=== PATIENT | female | born 1945 | race Hispanic/Latino ===

== ENCOUNTER 2018-07-01 09:25 | Observation (INO) | payer MEDICARE ==
[~2018-07-01] VITALS: Ht 154.9 cm; Wt 97.5 kg
[2018-07-01] MEDS ORDERED: VITAMIN E400 UNI1 (09:35)
[2018-07-01] MEDS ORDERED: METFORMIN HCL500 MG PO (09:35)
[2018-07-01] MEDS ORDERED: GLIPIZIDE5 MG PO (09:35)
[2018-07-01] MEDS ORDERED: ASPIRIN81 MG PO (09:35)
[2018-07-01] MEDS ORDERED: LOSARTAN POTASS25 MG (09:35)
[2018-07-01] MEDS ORDERED: VITAMIN D3400 UNI1 (09:35)
[2018-07-01] MEDS ORDERED: CARVEDILOL3.125 MG PO (09:35)
[2018-07-01] MEDS ORDERED: VITAMIN B-121000 MCG PO (09:35)
[2018-07-01] MEDS ORDERED: NITROGLYCERIN 2% OINT 1 GM PKT TOP ONE ×2 (09:45→10:30)
[2018-07-01 10:09] LABS: BASOPHILS % 0.7 % (0.0-1.0); EOSINOPHILS # (AUTO) 0.1 (0.0-0.4); EOSINOPHILS % 2.7 % (0.0-6.0); HEMATOCRIT 39.4 % (34.2-44.1); HEMOGLOBIN 12.8 g/dL (12.0-16.0); LYMPHOCYTES # (AUTO) 1.2 (1.0-3.2); LYMPHOCYTES % 28.7 % (18.0-39.1); MEAN CORPUSCULAR HEMOGLOBIN 30.8 pg (28-32); MEAN CORPUSCULAR HGB CONC 32.5 g/dL (31-35); MEAN CORPUSCULAR VOLUME 94.7 fL (81-99); MONOCYTES # (AUTO) 0.5 (0.2-0.8); MONOCYTES % 11.3 % (4.4-11.3); NEUTROPHILS # (AUTO) 2.3 (2.1-6.9); NEUTROPHILS % 56.4 % (38.7-80.0); PLATELET COUNT 156 x10e3/uL (140-360); RED BLOOD COUNT 4.16 x10e6/uL (3.6-5.1); RED CELL DISTRIBUTION WIDTH 13.2 % (11.7-14.4)
[2018-07-01 10:22] LABS: INR 1.03
[2018-07-01 10:23] LABS: PARTIAL THROMBOPLASTIN TIME 26.5 seconds (23.8-35.5)
--- NOTE | 2018-07-01 10:23 | NUR ---
PT STATES SHE IS NOT EXPERIENCING ANY SENSATION IN HER CHEST ANYMORE POST NITRO BID ADMIN
[2018-07-01 10:25] LABS: CLARITY,URINE SL CLOUDY (CLEAR); COLOR,URINE YELLOW (YELLOW)
[2018-07-01 10:26] LABS: ALANINE AMINOTRANSFERASE 44 IU/L (0-55); ALBUMIN 3.6 g/dL (3.5-5.0); ALBUMIN/GLOBULIN RATIO 1.1 (0.8-2.0); ALKALINE PHOSPHATASE 127 IU/L (40-150); ANION GAP 13.3 mmol/L (8-16); BILIRUBIN,URINE NEGATIVE (NEGATIVE); BLOOD UREA NITROGEN 12 mg/dL (7-26); BUN/CREATININE RATIO 16 (6-25); CALCIUM 9.8 mg/dL (8.4-10.2); CARBON DIOXIDE 27 mmol/L (22-29); CHLORIDE 107 mmol/L (98-107); CREATINE KINASE 140 IU/L (29-168); CREATININE, SERUM 0.77 mg/dL (0.57-1.11); EST GLOMERULAR FILTRATION RATE > 60 ML/MIN (60-); GLUCOSE 106 mg/dL (74-118); KETONES,URINE NEGATIVE (NEGATIVE); LEUKOCYTE ESTERASE ,URINE 2+ (NEGATIVE); MAGNESIUM 1.9 MG/DL (1.3-2.1); NITRITE,URINE NEGATIVE (NEGATIVE); POTASSIUM 4.3 mmol/L (3.5-5.1); PROTEIN,URINE DIPSTICK TRACE (NEGATIVE); SODIUM 143 mmol/L (136-145); URINE UROBILINOGEN 0.2 mg/dL (0.2 - 1)
[2018-07-01] MEDS ORDERED: ASPIRIN 81 MG CHEW TAB PO ONE ×2 (10:30→15:00)
[2018-07-01 10:32] LABS: BACTERIA,URINE MANY /HPF; RBC,URINE 0-5 /HPF (0-5); WBC,URINE (MAN) >50 /HPF (0-5)
[2018-07-01 10:33] LABS: EPITHELIAL CELLS,URINE RARE /LPF; MUCUS,URINE FEW (RARE)
--- NOTE | 2018-07-01 10:37 | Diagnostic Imaging Report ---
EXAMINATION: CHEST SINGLE (PORTABLE) INDICATION: ^CP SOB ^[id number] ^[id number] COMPARISON: None FINDINGS: AP view TUBES and LINES: None. LUNGS: Limited by body habitus and low lung volumes. There is no evidence of pneumonia or pulmonary edema. PLEURA: No pleural effusion or pneumothorax. HEART AND MEDIASTINUM: The cardiomediastinal silhouette is unremarkable. BONES AND SOFT TISSUES: No acute osseous lesion. Soft tissues are unremarkable. UPPER ABDOMEN: No free air under the diaphragm. IMPRESSION: No acute thoracic abnormality. Signed by: Dr. Evens Robertson MD on 07/01/2018 10:33 AM
--- OUTSIDE RECORDS SUMMARY | 2018-07-01 11:44 | XMS REPORT ---
[facility] Address Unknown Phone Unavailable Care Team Providers Care Reading Aide Name Role Phone Eris RUCKER Unavailable Unavailable Problems This patient has no known problems. Allergies, Adverse Reactions, Alerts This patient has no known allergies or adverse reactions. Medications This patient has no known medications. Results Test Description Test Time Test Comments Text Results Atomic Results Result Comments CHEST SINGLE (PORTABLE) 2018-07-01 10:32:00 [place] [address] Patient Name: ESTELLE QUINTERO MR #: [id number] : 1945 Age/Sex: 72/F Req #: [id number] Adm Physician: Ordered by: YURI RUCKER MD Report #: [id number] Location: ER Room/Bed: Procedure: [id number] DX/CHEST SINGLE (PORTABLE) Exam Date: 07/01/18 Exam Time: 0950 REPORT STATUS: Signed EXAMINATION: CHEST SINGLE (PORTABLE) INDIC ATION: CP SOB [id number] COMPARISON: None FINDINGS: AP view TUBES and LINES: None. LUNGS: Limited by body habitus and low lung volumes. There is no evidence of pneumonia or pulmonary edema. PLEURA: No pleural effusion or pneumothorax. HEART AND MEDIASTINUM: The cardiomediastinal silhouette is unremarkable. BONES AND SOFT TISSUES: No acute osseous lesion. Soft tissues are unremarkable. UPPER ABDOMEN: No free air under the diaphragm. IMPRESSION: No acute thoracic abnormality. Signed by: Dr. Evens Osei MD on 07/01/2018 10:33 AM Dictated By: EVENS OSEI MD [id number] Transcribed By: KAN on 07/01/18 1033 COPY TO: YURI RUCKER MD SCR MAMM BILATERAL CAD DIGITAL 2018-02-16 15:12:18 - SCR MAMM BILATERAL CAD DIGITALBILATERAL DIGITAL SCREENING MAMMOGRAM WITH CAD: 02/14/2018CLINICAL: Asymptomatic. Current mammographic images were evaluated by either a [employer] M- Vu or a [employer] Image[employer]uckletreeer CAD (computer aided detection system). Comparison is made to exams dated 02/02/2014 mammogram - [facility], 03/08/2016 mammogram - [facility] 01/27/2012 mammogram, and 03/22/2011 mammogram - [facility]. The tissue of both breasts is predominantly fatty. There are benign vascular calcifications and calcifications in both breasts. There also is a benign mass in the left breast, stable since 2010. No suspicious mass, architectural distortion, malignant type calcification, or lymph node abnormality detected. Breast architecture is stable compared to prior exams.IMPRESSION: BENIGNThere is no mammographic evidence of malignancy. Resume annual screening mammography in one year. Suyapa Mendez D.O. al/:02/16/2018 15:12:18 Boiler Repairman: Marbella HARRIS, [facility]-FWletter sent: BIRADS 1-2 Normal Mammogram BI-RADS: 2 Benign
[2018-07-01] MEDS ORDERED: DEXTROSE 50% SYRINGE 50 ML IV PRN (11:45)
[2018-07-01] MEDS ORDERED: NITROGLYCERIN 0.4 MG SUBL SL PRN (11:45)
[2018-07-01] MEDS ORDERED: ONDANSETRON HCL INJ 2MG/ML 2ML 2 MG/ML VIAL IV PRN (11:45)
[2018-07-01] MEDS: CEFTRIAXONE SOD 1 GM/NS 50 ML 50 ML IV SCH (11:53)
--- NOTE | 2018-07-01 11:53 | NUR ---
PT RESTING COMFORTABLY IN BED MAKES NO COMPLAINTS AT THIS TIME GIVEN WARM BLANKETS
--- NOTE | 2018-07-01 12:10 | NUR ---
DR YUAN IN ROOM WITH PT
--- NOTE | 2018-07-01 12:30 | NUR ---
ARRIVED VIA STRETCHER FROM ER, AA&OX3, RA, DENIES CP AT THIS TIME, ORIENTED TO ROOM AND CALL LIGHT SYSTEM, CALL LIGHT WITHIN REACH, FAMILY AT SIDE
[2018-07-01 13:00] VITALS: BP 135/64
[2018-07-01 14:00] VITALS: BP 135/64
[2018-07-01] MEDS ORDERED: CLOPIDOGREL BISULFATE 75 MG TAB PO ONE (15:00)
[2018-07-01] MEDS: ENOXAPARIN SODIUM INJ 100 MG/ML SYR SC ONE (15:06)
[2018-07-01 15:24] LABS: CREATINE KINASE MB 2.1 ng/mL (0-5.0)
--- NOTE | 2018-07-01 15:37 | Consultation ---
DATE OF CONSULTATION: 07/01/2018 Cardiac Consultation REASON FOR CONSULTATION: Chest pain. HISTORY OF PRESENT ILLNESS: A 72-year-old lady, diabetic, hypertensive, and hyperlipidemic for more than 20 years. She had fall and frozen left shoulder since 2014. She came to this institution because she had two episodes yesterday and today of pinching her chest, not pressure and with that, she felt not well and radiating to her left arm. She got one episode yesterday and one episode today. She claims she walks every day any prior angina. However, she does have shortness of breath on exertion. She denied having any orthopnea or paroxysmal nocturnal dyspnea. There is no syncope or presyncope. REVIEW OF SYSTEMS: Done to all systems, will be summarized for clarity: GENERAL: No fever. No chills. HEENT: Unremarkable. PULMONARY: Class 3 shortness of breath on exertion. No recent travel. No pleuritic chest pain. CARDIAC: As per acute illness, mainly shortness of breath on exertion. Yesterday and today, she had episodes of chest pain. Of note, this chest pain helped by nitroglycerin given. GI: No hematemesis. No melena. No GERD. No nausea. No vomiting. : No hematuria. No dysuria. MUSCULOSKELETAL: Low back pain. Tingling and numbness in the feet. NEUROLOGIC: No seizure activity. No localized weakness. ENDOCRINE: The patient is diabetic for many years. 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 She is . She is nonsmoker. No alcohol drinker. HOME MEDICATIONS: Include aspirin 81 mg a day, Coreg 3.125 mg twice a day, losartan 25 mg a day, glipizide 5 mg a day, metformin 500 mg twice a day, and vitamin D3 and B12. ALLERGIES: LISINOPRIL. PAST MEDICAL HISTORY: 1. Diabetes mellitus since early . 2. Hypertension. 3. Hyperlipidemia. 4. Cholecystectomy. 5. Hysterectomy. 6. Back pain. 7. Fall and frozen left shoulder. FAMILY HISTORY: Father at age 55 with drowning accident. Mother doing well at age 92, she does have Alzheimer's. Six siblings, two brothers and four sisters. One of the brother had myocardial infarction in his 50s. Five healthy children. PHYSICAL EXAMINATION: VITAL SIGNS: Height of 5 feet 1 inch, weight of 215 pounds. Blood pressure 120/50, heart rate of 70, and respiratory rate of 18. HEENT: Pupils are equal and reactive. NECK: No elevation of jugular venous pulsation. No bruit. CHEST: Clear to auscultation and percussion. HEART: PMI in fifth left intercoastal space. Normal first and second heart sounds. ABDOMEN: Soft with good bowel sounds. No organomegaly. No abdominal bruits. EXTREMITIES: No cyanosis. No clubbing. No edema. No signs of deep venous thrombosis. NEUROLOGIC: Nonfocal. LABORATORY DATA: First set of cardiac enzymes is normal. BUN of 12, creatinine of 0.8. Sodium of 143, potassium 4.3. White blood cell count of 4.7, hemoglobin of 12.8, hematocrit 39%, and platelet count of 166,000. BNP Of 35. EKG showed no acute changes. Chest x-ray by report is normal. IMPRESSION AND PLAN: 1. Chest pain with typical as well as atypical characteristics. Typical characteristic is recent onset, helped by nitroglycerin in the patient with multiple cardiac risks factors. Atypical, was pinching pain and no prior warning angina although shortness of breath on exertion is angina equivalent. 2. Diabetes mellitus with end-organ damage. 3. Hypertension. 4. Hyperlipidemia. 5. Peripheral neuropathy. 6. Chronic left shoulder pain. Cardiac june, the patient needs to be treated as unstable coronary syndrome. She will be loaded with Plavix. She will be given one shot of Lovenox. We will get serial cardiac enzymes. We will get an echocardiogram. We had lengthy discussion about our options of working her cardiac status, pending on initial investigations, pending on the patient's symptomatology, we can proceed with the next step which should be cardiac stress test unless the patient continues to have pain or her enzymes are normal; however, we will reevaluate the patient's condition. Pending on her course. Further steps to be done. Questions are answered. Case discussed with the patient and her family. MD FABY Mancilla/TEMIL /[id number]
[2018-07-01] MEDS ORDERED: NITROGLYCERIN 2% OINT 1 GM PKT TOP SCH (16:00)
[2018-07-01] MEDS: INSULIN LISPRO 100 UNIT/1 ML 3ML VIAL SQ SCH ×2 (16:30→21:00)
[2018-07-01] MEDS: CARVEDILOL 3.125 MG TAB PO SCH (17:00)
[2018-07-01 17:51] VITALS: BP 134/62
[2018-07-01] MEDS: METFORMIN HCL 500 MG TAB PO SCH (18:00)
--- NOTE | 2018-07-01 18:30 | NUR ---
DENIES ANY CP OR SOB AT THIS TIME, NO CHANGE IN CONDITION, CALL LIGHT WITHIN REACH, FAMILY AT SIDE
--- NOTE | 2018-07-01 19:03 | NUR ---
WALKING ROUNDS PERFORMED, RECEIVED PT LAYING SEMI FOWLERS IN BED, AAOX3, RR EVEN AND NON-LABORED, ON RA. NO S/SX OF DISTRESS NOTED. LEFT PT LAYING SEMI FOWLERS IN BED,BED IN LOW LOCKED POSITION, SIDE RAILS UPX2, CALL LIGHT AND PHONE WITHIN REACH.
[2018-07-01 20:00] VITALS: BP 134/65
[2018-07-01] MEDS ORDERED: FAMOTIDINE 20 MG/2 ML VIAL IV SCH (20:00)
[2018-07-01 21:18] VITALS: BP 134/62
[2018-07-02] VITALS (8 sets, daily range): BP systolic 124–170; BP diastolic 60–80
[2018-07-02 06:35] LABS: BASOPHILS % 0.3 % (0.0-1.0); EOSINOPHILS # (AUTO) 0.1 (0.0-0.4); HEMATOCRIT 37.3 % (34.2-44.1); HEMOGLOBIN 12.1 g/dL (12.0-16.0); LYMPHOCYTES # (AUTO) 1.1 (1.0-3.2); LYMPHOCYTES % 34.5 % (18.0-39.1); MEAN CORPUSCULAR HEMOGLOBIN 30.9 pg (28-32); MEAN CORPUSCULAR HGB CONC 32.4 g/dL (31-35); MEAN CORPUSCULAR VOLUME 95.2 fL (81-99); MONOCYTES # (AUTO) 0.4 (0.2-0.8); MONOCYTES % 11.5 % (4.4-11.3); NEUTROPHILS # (AUTO) 1.7 (2.1-6.9); NEUTROPHILS % 50.4 % (38.7-80.0); PLATELET COUNT 141 x10e3/uL (140-360); RED BLOOD COUNT 3.92 x10e6/uL (3.6-5.1); RED CELL DISTRIBUTION WIDTH 13.3 % (11.7-14.4)
[2018-07-02 06:59] LABS: ALANINE AMINOTRANSFERASE 39 IU/L (0-55); ALBUMIN 3.3 g/dL (3.5-5.0); ALBUMIN/GLOBULIN RATIO 1.1 (0.8-2.0); ALKALINE PHOSPHATASE 115 IU/L (40-150); ANION GAP 11.9 mmol/L (8-16); BLOOD UREA NITROGEN 12 mg/dL (7-26); BUN/CREATININE RATIO 17 (6-25); CALCIUM 9.4 mg/dL (8.4-10.2); CARBON DIOXIDE 26 mmol/L (22-29); CHLORIDE 108 mmol/L (98-107); CREATININE, SERUM 0.71 mg/dL (0.57-1.11); EST GLOMERULAR FILTRATION RATE > 60 ML/MIN (60-); GLUCOSE 88 mg/dL (74-118); POTASSIUM 3.9 mmol/L (3.5-5.1); SODIUM 142 mmol/L (136-145)
[2018-07-02 07:18] LABS: THYROID STIMULATING HORMONE 1.978 uIU/mL (0.350-4.940)
[2018-07-02] MEDS: INSULIN LISPRO 100 UNIT/1 ML 3ML VIAL SQ SCH ×4 (07:30→21:11)
[2018-07-02] MEDS: CARVEDILOL 3.125 MG TAB PO SCH (08:00)
[2018-07-02] MEDS: METFORMIN HCL 500 MG TAB PO SCH ×2 (08:00→17:38)
[2018-07-02] MEDS: LOSARTAN POTASSIUM 25 MG TAB PO SCH (09:00)
[2018-07-02] MEDS: CLOPIDOGREL BISULFATE 75 MG TAB PO SCH (09:00)
[2018-07-02] MEDS ORDERED: GLIPIZIDE 5 MG TAB PO SCH (09:00)
[2018-07-02] MEDS: ASPIRIN 81 MG ENTERIC COATED PO SCH (09:00)
--- NOTE | 2018-07-02 10:00 | NUR ---
AMBULATING IN HALLWAY, STEADY GAIT Addendum: 07/02/18 at 1148 by Justyna Pimentel RN PT DENIES ANY SOB WHILE AMBULATING
--- NOTE | 2018-07-02 11:32 | NUR ---
MD SMITH INTO SEE PT, DISCUSSED POC
--- NOTE | 2018-07-02 11:53 | NUR ---
MD YUAN INTO SEE PT, DISCUSSED POC
[2018-07-02] MEDS ORDERED: SODIUM CHLORIDE 0.9% 250ML 250 ML ONE (11:59)
[2018-07-02] MEDS: CEFTRIAXONE SOD 1 GM/NS 50 ML 50 ML IV SCH (12:12)
[2018-07-02] MEDS: GLIPIZIDE 5 MG TAB PO SCH (17:39)
--- NOTE | 2018-07-02 19:08 | NUR ---
WALKING ROUNDS PERFORMED, RECEIVED PT LAYING SEMI FOWLERS IN BED, AAOX3, RR EVEN AND NON-LABORED, ON RA. NO S/SX OF DISTRESS NOTED. LEFT PT LAYING SEMI FOWLERS IN BED, BED IN LOW LOCKED POSITION, SIDE RAILS UPX2, CALL LIGHT AND PHONE WITHIN REACH.
[2018-07-03 00:47] VITALS: BP 130/62
[2018-07-03 05:10] VITALS: BP 141/65
--- NOTE | 2018-07-03 07:16 | NUR ---
Received patient in report this morning. Patient is awake and sitting in chair at bedside. No S&S of distress at this time.
[2018-07-03] MEDS: INSULIN LISPRO 100 UNIT/1 ML 3ML VIAL SQ SCH ×2 (07:30→11:30)
[2018-07-03 07:32] VITALS: BP 157/70
[2018-07-03] MEDS: METFORMIN HCL 500 MG TAB PO SCH (08:00)
[2018-07-03] MEDS: GLIPIZIDE 5 MG TAB PO SCH (08:00)
--- NOTE | 2018-07-03 08:45 | NUR ---
Patient is A&Ox3, sitting in chair at bedside. Patient walks with no assistance. No complaints of pain, no chest pain. Lung sounds clear, bowel sounds active. Skin intact. No edema noted. L AC 20g IV asymptomatic, intact, and patent. No S&S of distress noted. Patient told to call staff when she has BM to collect sample. Family member at bedside. Call light in reach.
[2018-07-03] MEDS ORDERED: REGADENOSON 0.4 MG/5 ML SYR IV ONE (08:47)
[2018-07-03] MEDS: CARVEDILOL 3.125 MG TAB PO SCH ×2 (09:00→13:23)
[2018-07-03] MEDS: LOSARTAN POTASSIUM 25 MG TAB PO SCH ×2 (09:00→13:22)
[2018-07-03] MEDS: CLOPIDOGREL BISULFATE 75 MG TAB PO SCH ×2 (09:00→13:22)
[2018-07-03] MEDS: ASPIRIN 81 MG ENTERIC COATED PO SCH ×2 (09:00→13:22)
--- NOTE | 2018-07-03 10:04 | NUR ---
Patient went to stress test at this time
[2018-07-03 10:36] VITALS: BP 157/70
--- NOTE | 2018-07-03 12:35 | NUR ---
Patient returned from stress test at this time,
[2018-07-03 13:01] VITALS: BP 181/74
[2018-07-03] MEDS: CEFTRIAXONE SOD 1 GM/NS 50 ML 50 ML IV SCH (13:15)
[2018-07-03 14:11] VITALS: BP 157/70
--- NOTE | 2018-07-03 14:45 | NUR ---
IV removed at this time. Catheter tip intact. Pressure dressing applied.
[2018-07-03] MEDS ORDERED: ONDANSETRON HCL 4 MG ORAL DISINTEGRATING TAB PO PRN (15:15)
--- NOTE | 2018-07-03 15:25 | NUR ---
Patient discharged at this time. Assisted to front via wheelchair, accompanied by staff.
--- NOTE | 2018-07-04 01:14 | History and Physical ---
LEXISCAN NUCLEAR STRESS REPORT ACCESSION NUMBER: [id number] INDICATION FOR STUDY: Chest pain and inability to exercise. TECHNICAL DETAILS: After risks, benefits, and pros and cons of this Lexiscan nuclear stress test were explained to the patient, the patient agreed to proceed. This was a same day rest/stress study. The patient was brought down to the nuclear laboratory. She received an 11-millicurie dose of technetium-99 tetrofosmin intravenously and after 14 minutes, resting myocardial perfusion imaging was performed on the Optics 1 SPECT camera. Afterwards, the patient was brought down to the stress lab with 12-lead EKG monitoring and blood pressure monitoring were obtained. She received dose of Lexiscan 0.4 mg intervenously followed by 33-millicurie dose of technetium-99 tetrofosmin intervenously. Resting heart rate went from the baseline of 68 beats per minutes to a maximum of 110 beats per minute. Blood pressure went from her baseline of 154/88 to 168/68, which is a normal hemodynamic response. Resting EKG reveals normal sinus rhythm. T-wave flattening in the inferior and lateral leads and with Lexiscan infusion, there is no ischemic EKG changes or symptoms. After 25 minutes, the patient was then taken to the SPECT camera for stress myocardial perfusion imaging. FINDINGS: 1. Resting myocardial perfusion imaging reveals normal tracer uptake and no scintigraphic areas of ischemia. 2. Stress myocardial perfusion imaging reveals normal tracer uptake and no scintigraphic areas of ischemia. 3. Following gated measurements were obtained: LV EDV 23, LV ESV 60 ventricular ejection fraction is 63% with normal wall motion. CONCLUSIONS: 1. Normal myocardial perfusion imaging study revealing normal tracer uptake and no scintigraphic areas of ischemia. 2. Normal left ventricular function with EF calculated to be 63%. 3. Overall findings of the stress test is suggestive of low risk study. MD TAYA Sanchez/AMADOR /[id number] HEENA
--- NOTE | 2018-07-04 04:00 | Discharge Summary ---
PRIMARY CARE DOCTOR: Donn Ledesma MD. FINAL DIAGNOSIS: Atypical chest pain. SECONDARY DIAGNOSES: 1. Escherichia coli urinary tract infection, status post IV Rocephin. 2. Morbid obesity. 3. Diabetes. 4. Hypertension. AIRCRAFT DE ICER INSTALLER: Dr. Duke, Cardiology. PROCEDURES/STUDIES PERFORMED: 1. Echocardiogram was benign. 2. The stress test was benign. HISTORY: Per H and P. HOSPITAL COURSE: The patient was evaluated by Cardiology, who felt that a stress test was indicated and this was done and it was unremarkable. The patient also has some dysuria. Her urine culture grew out Escherichia coli resistant to Bactrim, ampicillin, and intermediate to cefazolin. The patient received IV Rocephin. The patient was seen and examined today. It took 31 minutes total to discharge this patient including updating her family members at the bedside. CONDITION ON DISCHARGE: Improved. DISCHARGE MEDICATIONS: Please see medication reconciliation form. FOLLOWUP: The patient will follow up with her primary care doctor in 1 week. MD TAHIR Cleaning/AMADOR /[id number] cc: [facility]
== END 2018-07-03 15:25 | disposition home or self-care (01) ==
LOC: ER 09:25 → ERHOLD 11:35 → MED/SURG 12:30
PROVIDERS: ADMIT Internal Medicine; ATTEND Internal Medicine
DX: R07.89 Other chest pain (principal); N30.00 Acute cystitis without hematuria; I10 Essential (primary) hypertension; E78.5 Hyperlipidemia, unspecified; Z82.49 Family history of ischemic heart disease and other diseases of the circulatory system; M79.602 Pain in left arm; E66.01 Morbid (severe) obesity due to excess calories; Z68.41 Body mass index [BMI] 40.0-44.9, adult; E11.42 Type 2 diabetes mellitus with diabetic polyneuropathy; B96.20 Unspecified Escherichia coli [E. coli] as the cause of diseases classified elsewhere; Z79.84 Long term (current) use of oral hypoglycemic drugs; Z88.8 Allergy status to other drugs, medicaments and biological substances
CPT/HCPCS: 36415 ×3; 71045; 78452; 80053 ×2; 80061; 81001; 82270; 82550; 82553; 82948 ×3; 83036; 83735; 83880; 84443; 84484; 85025 ×2; 85610; 85730; 87086; 87186; 93005; 93017; 93306; 99284; A9502; G0378 ×3; J0696 ×3; J1650; J2785; J7050

== ENCOUNTER 2021-12-09 20:01 | Emergency (ER) | payer MEDICARE ==
[~2021-12-09] VITALS: Ht 154.9 cm; Wt 97.5 kg
[~2021-12-09 20:01] MED LIST: ASPIRIN81 MG PO; CARVEDILOL3.125 MG PO; GLIPIZIDE5 MG PO; LOSARTAN POTASS25 MG; METFORMIN HCL500 MG PO; VITAMIN B-121000 MCG PO; VITAMIN D3400 UNI1; VITAMIN E400 UNI1
[2021-12-09 20:26] LABS: BASOPHILS % 0.3 % (0.0-1.0); EOSINOPHILS # (AUTO) 0.1 (0.0-0.4); EOSINOPHILS % 3.9 % (0.0-6.0); HEMATOCRIT 36.7 % (34.2-44.1); HEMOGLOBIN 11.8 g/dL (12.0-16.0); LYMPHOCYTES # (AUTO) 1.1 (1.0-3.2); LYMPHOCYTES % 32.3 % (18.0-39.1); MEAN CORPUSCULAR HEMOGLOBIN 30.7 pg (28-32); MEAN CORPUSCULAR HGB CONC 32.2 g/dL (31-35); MEAN CORPUSCULAR VOLUME 95.6 fL (81-99); MONOCYTES # (AUTO) 0.3 (0.2-0.8); MONOCYTES % 10.1 % (4.4-11.3); NEUTROPHILS # (AUTO) 1.8 (2.1-6.9); NEUTROPHILS % 53.4 % (38.7-80.0); PLATELET COUNT 123 x10e3/uL (140-360); RED BLOOD COUNT 3.84 x10e6/uL (3.6-5.1); RED CELL DISTRIBUTION WIDTH 13.2 % (11.7-14.4)
[2021-12-09 20:50] LABS: ALANINE AMINOTRANSFERASE 28 IU/L (0-55); ALBUMIN 3.8 g/dL (3.5-5.0); ALBUMIN/GLOBULIN RATIO 1.2 (0.8-2.0); ALKALINE PHOSPHATASE 98 IU/L (40-150); ANION GAP 15.2 mmol/L (8-16); BLOOD UREA NITROGEN 14 mg/dL (7-26); BUN/CREATININE RATIO 17 (6-25); CALCIUM 9.2 mg/dL (8.4-10.2); CARBON DIOXIDE 25 mmol/L (22-29); CHLORIDE 105 mmol/L (98-107); CREATINE KINASE 168 IU/L (29-168); CREATININE, SERUM 0.82 mg/dL (0.57-1.11); GLUCOSE 220 mg/dL (74-118); POTASSIUM 4.2 mmol/L (3.5-5.1); SODIUM 141 mmol/L (136-145)
[2021-12-09 22:21] VITALS: BP 168/76
== END 2021-12-09 22:09 | disposition home or self-care (01) ==
LOC: ER 20:36
DX: R07.9 Chest pain, unspecified (principal); I10 Essential (primary) hypertension; E11.65 Type 2 diabetes mellitus with hyperglycemia; E78.00 Pure hypercholesterolemia, unspecified; R94.31 Abnormal electrocardiogram [ECG] [EKG]
CPT/HCPCS: 36415; 71045; 80053; 82550; 82553; 84484; 85025; 93005; 99284

== ENCOUNTER 2023-10-16 20:18 | Emergency (ER) | payer MEDICARE ==
[~2023-10-16] VITALS: Ht 157.5 cm; Wt 86.6 kg
[2023-10-16 20:42] VITALS: PULSE 74; RESP 18; TEMP 98.6
[2023-10-16] MEDS ORDERED: TETANUS/DIPHTHERIA TOX ADULT 0.5 ML SYR IM ONE (20:45)
[2023-10-16] MEDS ORDERED: CEFTRIAXONE 1 GM VIAL IM ONE (21:30)
[2023-10-16] MEDS ORDERED: CEFDINIR300 MG PO (21:35)
[2023-10-16] MEDS ORDERED: LIDOCAINE HCL 1% LOCAL INJ 20 ML VIAL ONE (21:43)
[2023-10-16 21:58] VITALS: BP 149/71; PULSE 74; RESP 18; TEMP 98.6; O2SAT 97
== END 2023-10-16 21:58 | disposition home or self-care (01) ==
LOC: FSED 20:32
DX: R06.02 Shortness of breath (principal); J20.9 Acute bronchitis, unspecified; R05.9 Cough, unspecified; I10 Essential (primary) hypertension; E11.9 Type 2 diabetes mellitus without complications; Z11.52 Encounter for screening for COVID-19
CPT/HCPCS: 0223U; 87400; 96372; 99282; J0696; J2001

== ENCOUNTER 2024-01-04 17:25 | Emergency (ER) | payer MEDICARE ==
[~2024-01-04] VITALS: Ht 157.5 cm; Wt 86.6 kg
[~2024-01-04 17:25] MED LIST changes: +CEFDINIR300 MG PO
[2024-01-04] MEDS: ALBUTEROL/IPRATROPIUM 3 ML NEB NEB ONE (20:00)
[2024-01-04] MEDS: METHYLPREDNISOLONE SOD SUCC 125 MG/2ML VIAL IM ONE (20:27)
[2024-01-04 21:44] VITALS: PULSE 74; RESP 18; TEMP 98.6
[2024-01-04] MEDS ORDERED: MEDROL4 M2 PO (21:44)
[2024-01-04] MEDS ORDERED: VENTOLIN HFA18 GM INH (21:44)
[2024-01-04 21:50] VITALS: PULSE 81; RESP 18; O2SAT 96
== END 2024-01-04 21:50 | disposition home or self-care (01) ==
LOC: ER 17:55
DX: R05.9 Cough, unspecified (principal); J45.909 Unspecified asthma, uncomplicated; I10 Essential (primary) hypertension; E11.9 Type 2 diabetes mellitus without complications; E78.5 Hyperlipidemia, unspecified; Z85.42 Personal history of malignant neoplasm of other parts of uterus
CPT/HCPCS: 71046; 94799; 99283; J2919

== ENCOUNTER 2024-01-13 00:09 | Emergency (ER) | payer MEDICARE ==
[~2024-01-13] VITALS: Ht 157.5 cm; Wt 86.6 kg
[~2024-01-13 00:09] MED LIST changes: +MEDROL4 M2 PO; +VENTOLIN HFA18 GM INH
[2024-01-13 00:16] VITALS: PULSE 61; RESP 20; TEMP 98.4
[2024-01-13 00:50] LABS: BASOPHILS % 0.3 % (0.0-1.0); EOSINOPHILS # (AUTO) 0.1 (0.0-0.4); HEMATOCRIT 40.2 % (34.2-44.1); HEMOGLOBIN 12.9 g/dL (12.0-16.0); LYMPHOCYTES # (AUTO) 1.5 (1.0-3.2); LYMPHOCYTES % 24.4 % (18.0-39.1); MEAN CORPUSCULAR HEMOGLOBIN 31.5 pg (28-32); MEAN CORPUSCULAR HGB CONC 32.1 g/dL (31-35); MONOCYTES # (AUTO) 0.7 (0.2-0.8); NEUTROPHILS # (AUTO) 3.7 (2.1-6.9); NEUTROPHILS % 60.6 % (38.7-80.0); PLATELET COUNT 147 x10e3/uL (140-360); RED CELL DISTRIBUTION WIDTH 13.3 % (11.7-14.4); WHITE BLOOD COUNT 6.02 x10e3/uL (4.8-10.8)
[2024-01-13 01:01] LABS: ALANINE AMINOTRANSFERASE 35 IU/L (0-55); ALBUMIN/GLOBULIN RATIO 1.3 (0.8-2.0); ALKALINE PHOSPHATASE 97 IU/L (40-150); ANION GAP 13.1 mmol/L (8-16); BLOOD UREA NITROGEN 19 mg/dL (7-26); BUN/CREATININE RATIO 37 (6-25); CALCIUM 9.4 mg/dL (8.4-10.2); CARBON DIOXIDE 25 mmol/L (22-29); CHLORIDE 102 mmol/L (98-107); CREATININE, SERUM 0.51 mg/dL (0.57-1.11); EST GLOMERULAR FILTRATION RATE 96 ML/MIN (>=60); GLUCOSE 155 mg/dL (74-118); POTASSIUM 4.1 mmol/L (3.5-5.1); SODIUM 136 mmol/L (136-145); TOTAL PROTEIN 7.1 g/dL (6.5-8.1)
[2024-01-13 01:05] LABS: BILIRUBIN,TOTAL < 0.1 mg/dL (0.2-1.2)
[2024-01-13 01:12] LABS: CLARITY,URINE SL CLOUDY (CLEAR); COLOR,URINE YELLOW (YELLOW)
[2024-01-13 01:13] LABS: BILIRUBIN,URINE NEGATIVE (NEGATIVE); GLUCOSE, URINE 500 (NEGATIVE); KETONES,URINE NEGATIVE (NEGATIVE); LEUKOCYTE ESTERASE ,URINE SMALL (NEGATIVE); NITRITE,URINE POSITIVE (NEGATIVE); PH,URINE 6 (5 - 7); PROTEIN,URINE DIPSTICK NEGATIVE (NEGATIVE); URINE UROBILINOGEN 0.2 mg/dL (0.2 - 1)
[2024-01-13 01:18] LABS: BACTERIA,URINE MANY /HPF; EPITHELIAL CELLS,URINE FEW /LPF; RBC,URINE 0-5 /HPF (0-5)
[2024-01-13 01:19] LABS: WBC,URINE (MAN) 21-50 /HPF (0-5)
[2024-01-13] MEDS ORDERED: IOPAMIDOL 370 MG/ML 100 ML INFUS..BTL INJ ONE (01:27)
[2024-01-13] MEDS ORDERED: CEFDINIR300 MG PO (02:54)
[2024-01-13] MEDS ORDERED: METRONIDAZOLE500 MG PO (02:54)
[2024-01-13] MEDS ORDERED: ONDANSETRON ODT4 MG SL (02:54)
[2024-01-13 03:04] VITALS: BP 150/68; O2SAT 99
== END 2024-01-13 03:00 | disposition home or self-care (01) ==
LOC: ER 00:13
DX: R10.32 Left lower quadrant pain (principal); N39.0 Urinary tract infection, site not specified; K57.32 Diverticulitis of large intestine without perforation or abscess without bleeding; K76.0 Fatty (change of) liver, not elsewhere classified; I10 Essential (primary) hypertension; E11.65 Type 2 diabetes mellitus with hyperglycemia; E78.5 Hyperlipidemia, unspecified; E78.00 Pure hypercholesterolemia, unspecified; Z85.42 Personal history of malignant neoplasm of other parts of uterus
CPT/HCPCS: 36415; 74177; 80053; 81001; 83690; 85025; 99284; Q9967

== ENCOUNTER 2024-07-16 12:54 | Emergency (ER) | payer MEDICARE ==
[~2024-07-16] VITALS: Ht 157.5 cm; Wt 86.6 kg
[~2024-07-16 12:54] MED LIST changes: +METRONIDAZOLE500 MG PO; +ONDANSETRON ODT4 MG SL
[2024-07-16 12:59] VITALS: PULSE 70; RESP 16; TEMP 98.1; O2SAT 100
== END 2024-07-16 15:10 | disposition home or self-care (01) ==
LOC: ER 12:58
DX: S00.83XA Contusion of other part of head, initial encounter (principal); W01.0XXA Fall on same level from slipping, tripping and stumbling without subsequent striking against object, initial encounter; Y93.01 Activity, walking, marching and hiking; Y92.89 Other specified places as the place of occurrence of the external cause; I10 Essential (primary) hypertension; E11.9 Type 2 diabetes mellitus without complications; E78.5 Hyperlipidemia, unspecified; E78.00 Pure hypercholesterolemia, unspecified; Z85.42 Personal history of malignant neoplasm of other parts of uterus
CPT/HCPCS: 70450; 70486; 99284

== ENCOUNTER 2024-07-20 19:57 | Emergency (ER) | payer MEDICARE ==
[~2024-07-20] VITALS: Ht 157.5 cm; Wt 86.6 kg
[2024-07-20 20:46] VITALS: PULSE 80; RESP 18; TEMP 98.7
[2024-07-20 21:14] LABS: BILIRUBIN,URINE NEGATIVE (NEGATIVE); CLARITY,URINE SL CLOUDY (CLEAR); COLOR,URINE YELLOW (YELLOW); GLUCOSE, URINE NEGATIVE (NEGATIVE); KETONES,URINE NEGATIVE (NEGATIVE); LEUKOCYTE ESTERASE ,URINE SMALL (NEGATIVE); NITRITE,URINE POSITIVE (NEGATIVE); PH,URINE 6 (5 - 7); PROTEIN,URINE DIPSTICK NEGATIVE (NEGATIVE); URINE UROBILINOGEN 1 mg/dL (0.2 - 1)
[2024-07-20 21:20] LABS: BACTERIA,URINE MANY /HPF; EPITHELIAL CELLS,URINE FEW /LPF; RBC,URINE 0-5 /HPF (0-5)
[2024-07-20] MEDS: CEFDINIR 300 MG CAP PO ONE (22:12)
[2024-07-20 22:29] VITALS: BP 175/67; O2SAT 100
== END 2024-07-20 22:35 | disposition home or self-care (01) ==
LOC: ER 20:45
DX: R39.15 Urgency of urination (principal); N39.0 Urinary tract infection, site not specified; I10 Essential (primary) hypertension; E11.9 Type 2 diabetes mellitus without complications; E78.5 Hyperlipidemia, unspecified; E78.00 Pure hypercholesterolemia, unspecified; Z85.42 Personal history of malignant neoplasm of other parts of uterus
CPT/HCPCS: 81001; 87086; 87186; 99283

== ENCOUNTER 2024-10-13 12:58 | Emergency (ER) | payer MEDICARE ==
[~2024-10-13] VITALS: Ht 157.5 cm; Wt 86.6 kg
[2024-10-13] MEDS: SODIUM CHLORIDE 0.9% 1000ML 1,000 ML IV STA (15:15)
[2024-10-13 15:41] LABS: BASOPHILS % 0.3 % (0.0-1.0); EOSINOPHILS % 2.5 % (0.0-6.0); LYMPHOCYTES % 21.4 % (18.0-39.1); MONOCYTES % 15.8 % (4.4-11.3); NEUTROPHILS % 59.7 % (38.7-80.0); RED CELL DISTRIBUTION WIDTH 13.6 % (11.7-14.4)
[2024-10-13 16:03] LABS: INR 1.06
[2024-10-13 16:10] LABS: LEUKOCYTE ESTERASE ,URINE TRACE (NEGATIVE)
[2024-10-13 16:11] LABS: EPITHELIAL CELLS,URINE FEW /LPF; PROTEIN,URINE DIPSTICK NEGATIVE (NEGATIVE); URINE UROBILINOGEN 0.2 mg/dL (0.2 - 1)
[2024-10-13 16:13] LABS: EST GLOMERULAR FILTRATION RATE 80.0 ML/MIN (>=60)
[2024-10-13 18:00] VITALS: PULSE 65; RESP 17; TEMP 98.7; O2SAT 98
[2024-10-13] MEDS ORDERED: CEFDINIR300 MG PO (18:35)
== END 2024-10-13 18:00 | disposition home or self-care (01) ==
LOC: ER 14:02
DX: R60.9 Edema, unspecified (principal); R33.9 Retention of urine, unspecified; N81.10 Cystocele, unspecified; N39.0 Urinary tract infection, site not specified; I10 Essential (primary) hypertension; E11.9 Type 2 diabetes mellitus without complications; E78.5 Hyperlipidemia, unspecified; Z85.42 Personal history of malignant neoplasm of other parts of uterus
CPT/HCPCS: 36415; 51702; 80053; 81001; 83880; 84484; 85025; 85610; 85730; 87086; 87186; 99284; J7030; 51700